=== PATIENT | male | born 1970 | race Caucasian/White ===

== ENCOUNTER 2020-03-03 17:52 | Emergency (ER) | payer BC ==
[2020-03-03 18:54] LABS: BUN/CREATININE RATIO 7 (0-10)
[2020-03-03 19:13] LABS: HEMOGLOBIN 13.3 gm/dl (14.0-17.5); RED BLOOD COUNT 4.47 M/UL (4.20-5.50); WHITE BLOOD COUNT 5.9 K/UL (4.5-11.0)
== END 2020-03-03 21:16 | disposition home or self-care (01) ==
LOC: ER1 17:52
PROVIDERS: Physician Assistant
DX: K42.9 Umbilical hernia without obstruction or gangrene (principal); K74.60 Unspecified cirrhosis of liver; R16.1 Splenomegaly, not elsewhere classified; Z87.19 Personal history of other diseases of the digestive system
CPT/HCPCS: 80053; 81001; 85025; 96374; 99284; J2405; Q9967